=== PATIENT | female | born 1970 | race Caucasian/White ===

== ENCOUNTER 2018-10-10 15:58 | Emergency (ER) | payer SELFPAY ==
[2018-10-10] MEDS ORDERED: HYDROcodone/Acetaminophen 10/325 mg Tablet ONE (17:06)
--- NOTE | 2018-10-10 17:17 | RAD ---
4 VIEWS RIGHT KNEE: Date: 10/10/18 COMPARISON: None. HISTORY: Knee pain. FINDINGS: There is mild medial compartment narrowing. There is no displaced fracture or evidence of dislocation . No knee joint effusion. IMPRESSION: No acute osseous abnormality noted. POS: [facility]
== END 2018-10-10 17:40 | disposition home or self-care (01) ==
LOC: ERS 15:58
DX: S83.91XA Sprain of unspecified site of right knee, initial encounter (principal); M06.9 Rheumatoid arthritis, unspecified; F17.200 Nicotine dependence, unspecified, uncomplicated; Z71.6 Tobacco abuse counseling; X58.XXXA Exposure to other specified factors, initial encounter
CPT/HCPCS: 99406